=== PATIENT | male | born 1955 | race Caucasian/White ===

== ENCOUNTER → 2017-04-05 | Outpatient (CLI) | payer OTHER ==
--- NOTE | 2017-04-05 09:41 | RAD ---
Gabino Prasad Standing bilateral knees 04/05/2017 0 900 Indication: Bilateral knee pain. Multiple views of bilateral knees were obtained including standing AP as well as lateral and patellofemoral sunrise views were performed There are severe medial compartmental degenerative changes with complete loss of the joint space on the standing views. There is marginal osteophyte formation noted as well. Significant patellofemoral degenerative change is also noted bilaterally with prominent posterior osteophytes. 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 No fractures are identified. No definite effusion is seen. Impression: Severe bilateral degenerative changes. No acute bony abnormality is detected.
== END | disposition home or self-care (01) ==
LOC: DXRAD 08:07
PROVIDERS: ATTEND Orthopaedic Surgery
DX: M17.0 Bilateral primary osteoarthritis of knee (principal); M92.51 Juvenile osteochondrosis of proximal tibia; M92.52 Juvenile osteochondrosis of tibia tubercle
CPT/HCPCS: 73564